=== PATIENT | female | born 1985 | race Caucasian/White ===

== ENCOUNTER 2017-03-18 15:11 | Emergency (ER) | payer SELFPAY ==
[~2017-03-18] VITALS: Ht 154.9 cm; Wt 46.4 kg
[2017-03-18] MEDS ORDERED: NS 1,000 ML IV ONE (16:00)
[2017-03-18 16:36] LABS: BASO % 0.3 % (0.0-1.0); EOS # 0.2 K/mm3 (0.0-0.50); EOS % 1.7 % (0.0-3.0); LARGE UNSTAINED CELL # 0.2 K/mm3 (0.0-0.4); LARGE UNSTAINED CELL % 1.5 % (0.0-4.0); LYMPH % 23.4 % (24.0-44.0); MEAN CORPUSCULAR HEMOGLOBIN 30.5 pg (27.0-33.0); MEAN CORPUSCULAR HGB CONC 34.8 g/dl (32.0-36.5); MEAN CORPUSCULAR VOLUME 87.7 fl (80.0-96.0); MONO # 0.7 K/mm3 (0.0-0.8); MONO % 5.7 % (0.0-5.0); NEUTROPHILS # 8.1 K/mm3 (1.8-7.7); NEUTROPHILS % 67.4 % (36.0-66.0); PLATELET COUNT, AUTOMATED 344 k/mm3 (150-450); RED CELL DISTRIBUTION WIDTH 12.6 % (11.5-14.5)
[2017-03-18 16:54] LABS: ALBUMIN 3.9 GM/DL (3.2-5.2); ALBUMIN/GLOBULIN RATIO 1.26 (1.00-1.93); ALKALINE PHOSPHATASE 55 U/L (45-117); ALT/SGPT 17 U/L (12-78); ANION GAP 8 MEQ/L (8-16); AST/SGOT 8 U/L (15-37); BILIRUBIN,DIRECT < 0.1 MG/DL (0.0-0.2); BILIRUBIN,TOTAL 0.3 MG/DL (0.2-1.0); BLOOD UREA NITROGEN 10 MG/DL (7-18); CALCIUM LEVEL 8.5 MG/DL (8.5-10.1); CARBON DIOXIDE LEVEL 26 MEQ/L (21-32); CHLORIDE LEVEL 108 MEQ/L (98-107); CREATININE FOR GFR 0.63 MG/DL (0.55-1.02); GLOMERULAR FILTRATION RATE > 60.0 (>60); GLUCOSE, FASTING 89 MG/DL (70-105); POTASSIUM SERUM 3.9 MEQ/L (3.5-5.1); SODIUM LEVEL 142 MEQ/L (136-145)
--- NOTE | 2017-03-18 19:00 | REP ---
Clinical: Vaginal bleeding for dating and viability. Technique: Transabdominal pelvic ultrasound followed by transvaginal examination for better evaluation of the endometrium and adnexa. Findings: Bladder is unremarkable and measures approximately 8.4 x 3.6 x 6.5 cm . Heterogeneous anteverted uterus measures 9.1 x 3.5 x 5.1 cm. The endometrial complex measures 10 mm thickness with mobile echogenic material consistent with hemorrhagic debris. No intrauterine identified. Bilateral ovaries are normal in appearance. Right ovary measures 2.4 x 2.1 x 2.1 cm. Left ovary measures 2.8 x 1.9 x 1.5 cm. No pelvic fluid or adnexal mass lesion. Impression: 1. While ectopic cannot be excluded, findings likely represent spontaneous in progress. Correlation with serial HCG levels recommended. 2. No intrauterine identified. Signed by Eduardo Martin MD 03/18/2017 06:52 P
[2017-03-18] MEDS ORDERED: RHOGAM 300 MCG (1500 IU) INJ (J2790) IM SCH (19:15)
[2017-03-18 19:34] VITALS: BP 127/81
== END 2017-03-18 21:01 | disposition home or self-care (01) ==
LOC: M ED 15:11
DX: O03.4 Incomplete spontaneous abortion without complication (principal); Z3A.00 Weeks of gestation of pregnancy not specified; Z72.0 Tobacco use
CPT/HCPCS: 36415; 76801; 76817; 80048; 80076; 81001; 83690; 84702; 85025; 86850; 86900; 86901; 87210; 87491; 87591; 90471; 96361; 99284; J2790

== ENCOUNTER → 2017-03-21 | Outpatient (CLI) | payer SELFPAY | LOC: M LAB 13:02 | PROVIDERS: ATTEND Specialist | DX: O02.1 Missed abortion (principal) ==

== ENCOUNTER → 2018-06-29 | Outpatient (CLI) | payer SELFPAY | LOC: M OUTALCOH 13:10 | DX: Z13.9 Encounter for screening, unspecified (principal); F10.20 Alcohol dependence, uncomplicated ==

== ENCOUNTER 2018-07-12 10:06 | Outpatient (RCR) | payer SELFPAY | END 2018-07-16 | LOC: M OUTALCOH 10:06 | PROVIDERS: ATTEND Psychiatry & Neurology Psychiatry | DX: F10.20 Alcohol dependence, uncomplicated (principal) ==

== ENCOUNTER → 2018-08-16 | Outpatient (RCR) | payer OTHER, SELFPAY | LOC: M OUTALCOH 07-19 13:13 | PROVIDERS: ATTEND Psychiatry & Neurology Psychiatry | DX: F10.20 Alcohol dependence, uncomplicated (principal) ==

== ENCOUNTER → 2018-09-13 | Outpatient (RCR) | payer OTHER | LOC: M OUTALCOH 08-17 11:48 | PROVIDERS: ATTEND Psychiatry & Neurology Psychiatry | DX: F10.20 Alcohol dependence, uncomplicated (principal) ==

== ENCOUNTER 2018-10-11 11:00 | Outpatient (RCR) | payer OTHER | END 2018-10-14 | LOC: M OUTALCOH 11:00 | PROVIDERS: ATTEND Psychiatry & Neurology Psychiatry | DX: F10.20 Alcohol dependence, uncomplicated (principal) ==

== ENCOUNTER 2018-11-08 16:00 | Outpatient (RCR) | payer OTHER | END 2018-11-13 | LOC: M OUTALCOH 16:00 | PROVIDERS: ATTEND Psychiatry & Neurology Psychiatry | DX: F10.20 Alcohol dependence, uncomplicated (principal) ==

== ENCOUNTER 2018-12-04 14:55 | Outpatient (RCR) | payer OTHER | END 2018-12-14 | LOC: M OUTALCOH 14:55 | PROVIDERS: ATTEND Psychiatry & Neurology Psychiatry | DX: F10.20 Alcohol dependence, uncomplicated (principal) ==

== ENCOUNTER 2019-01-07 16:00 | Outpatient (RCR) | payer OTHER | END 2019-01-13 | LOC: M OUTALCOH 16:00 | PROVIDERS: ATTEND Psychiatry & Neurology Psychiatry | DX: F10.20 Alcohol dependence, uncomplicated (principal) ==

== ENCOUNTER 2019-01-14 14:57 | Outpatient (RCR) | payer OTHER | END 2019-02-13 | LOC: M OUTALCOH 14:57 | PROVIDERS: ATTEND Psychiatry & Neurology Psychiatry | DX: F10.20 Alcohol dependence, uncomplicated (principal) ==

== ENCOUNTER → 2021-10-01 | Outpatient (REF) | payer OTHER | LOC: M LAB REF 17:57 | PROVIDERS: ATTEND Physician Assistant | DX: R19.7 Diarrhea, unspecified (principal) ==

== ENCOUNTER → 2023-02-22 | Outpatient (REF) | payer OTHER | LOC: M SFHCADAM 16:51 | PROVIDERS: ATTEND Nurse Practitioner Family | DX: Z53.9 Procedure and treatment not carried out, unspecified reason (principal) ==

== ENCOUNTER → 2023-03-02 | Outpatient (REF) | payer OTHER ==
[2023-03-02 20:09] LABS: THYROID STIMULATING HORMONE 0.684 uIU/ML (0.55-4.78); THYROXINE (T4) 11.9 UG/DL (4.5-10.9)
[2023-03-02 20:10] LABS: FREE THYROXINE INDEX 3.3 % (1.3-4.8); T UPTAKE 27.9 % (22.5-37.0)
[2023-03-04 14:09] LABS: ANTI DOUBLE STRAND-DNA AB 3 IU/mL (0-9); ANTINUCLEAR ANTIBODIES DIRECT Positive (Negative); RNP ANTIBODIES <0.2 AI (0.0-0.9); SJOGREN'S ANTI SS-A <0.2 AI (0.0-0.9); SJOGREN'S ANTI SS-B 2.8 AI (0.0-0.9); SMITH ANTIBODIES <0.2 AI (0.0-0.9)
== END ==
LOC: M LAB REF 19:26
PROVIDERS: ATTEND Nurse Practitioner Family
DX: L80 Vitiligo (principal)

== ENCOUNTER → 2024-05-20 | Outpatient (CLI) | payer OTHER ==
[2024-05-20 17:21] LABS: HEMATOCRIT 41.3 % (36.0-47.0); HEMOGLOBIN 13.7 g/dl (12.0-15.5); MEAN CORPUSCULAR HEMOGLOBIN 32.8 pg (27.0-33.0); MEAN CORPUSCULAR HGB CONC 33.2 g/dl (32.0-36.5); MEAN CORPUSCULAR VOLUME 98.8 fl (80.0-96.0); PLATELET COUNT, AUTOMATED 403 10^3/uL (150-450); RED BLOOD COUNT 4.18 10^6/uL (4.00-5.40); WHITE BLOOD COUNT 8.2 10^3/uL (4.0-10.0)
[2024-05-20 17:51] LABS: ALBUMIN 3.6 G/DL (3.2-5.2); ALKALINE PHOSPHATASE 86 U/L (35-104); ALT/SGPT 17 U/L (7.0-40); AST/SGOT 20 U/L (<34); BILIRUBIN,TOTAL 0.4 MG/DL (0.3-1.2); BLOOD UREA NITROGEN 13 MG/DL (9-23); CALCIUM LEVEL 9.9 MG/DL (8.5-10.1); CARBON DIOXIDE LEVEL 29 MMOL/L (20-31); CHLORIDE LEVEL 104 MMOL/L (98-107); CREATININE FOR GFR 0.66 MG/DL (0.55-1.30); FOLATE 7.93 NG/ML (>5.4); FOLLICLE STIMULATING HORMONE 3.5 mIU/ML; GLOMERULAR FILTRATION RATE > 60.0 (>60); GLUCOSE, FASTING 80 MG/DL (60-100); IRON (FE) 86 UG/DL (50-170); LUTEINIZING HORMONE 0.3 mIU/ML; POTASSIUM SERUM 4.4 MMOL/L (3.5-5.1); PROLACTIN 9.77 NG/ML; SODIUM LEVEL 137 MMOL/L (136-145); THYROID STIMULATING HORMONE 1.288 uIU/ML (0.55-4.78); TOTAL PROTEIN 7.1 G/DL (5.7-8.2)
[2024-05-20 17:52] LABS: ESTRADIOL < 19.0 PG/ML; VITAMIN B12 LEVEL 831 PG/ML (211-911)
== END ==
LOC: M WUC 14:46
PROVIDERS: ATTEND Internal Medicine
DX: Z79.899 Other long term (current) drug therapy (principal); F41.9 Anxiety disorder, unspecified; R53.83 Other fatigue; N92.6 Irregular menstruation, unspecified